=== PATIENT | female | born 1985 | race Caucasian/White ===

== ENCOUNTER 2023-06-04 05:55 | Inpatient (IN) | payer BC ==
[2023-06-04] MEDS ORDERED: METHYLERGONOVINE 0.2 MG/ML 1 ML AMP IM PRN (06:18)
[2023-06-04] MEDS ORDERED: OXYTOCIN 10 UNIT/ML 1 ML VIAL IM PRN (06:18)
[2023-06-04] MEDS ORDERED: miSOPROStoL 200 MCG TAB PO PRN (06:18)
[2023-06-04] MEDS ORDERED: CARBOPROST TROMETHAMINE 250 MCG/ML 1 ML AMP IM PRN (06:18)
[2023-06-04] MEDS ORDERED: TERBUTALINE 1 MG/ML VIAL SQ PRN (06:18)
[2023-06-04] MEDS ORDERED: TRANEXAMIC 1,000 MG/100ML-NACL 1,000 MG in EMPTY BAG 1 BAG IV PRN (06:18)
[2023-06-04] MEDS ORDERED: LIDOCAINE 0.5% (PF) 5 MG/ML (50 ML SDV) SQ PRN (06:18)
[2023-06-04] MEDS: LACTATED RINGERS 1,000 ML IV SCH ×2 (06:21→13:15)
[2023-06-04] MEDS ORDERED: OXYTOCIN 30 UNITS/500 ML NS 30 UNIT in SALINE 1 500ML.BAG IV SCH ×2 (06:30→13:15)
[2023-06-04 06:42] LABS: Basophils % (A) 0 %; Eosinophils # (A) 0.1 k/uL (0-0.7); Eosinophils % (A) 1 %; HCT 32.9 % (34.0-46.0); HGB 11.9 gm/dL (11.4-16.0); Lymphocytes # (A) 1.4 k/uL (1.0-4.8); Lymphocytes % (A) 19 %; MCH 32.6 pg (25.0-35.0); MCHC 36.1 g/dL (31.0-37.0); MCV 90.4 fL (80.0-100.0); Mean Platelet Volume 8.6; Monocytes # (A) 0.4 k/uL (0-1.0); Monocytes % (A) 5 %; Neutrophils # (A) 5.6 k/uL (1.3-7.7); Neutrophils % (A) 74 %; Platelet Count 165 k/uL (150-450); RBC 3.64 m/uL (3.80-5.40); RDW 13.4 % (11.5-15.5); WBC 7.6 k/uL (3.8-10.6)
[2023-06-04] MEDS ORDERED: diphenhydrAMINE 50 MG/ML 1 ML VIAL IVP PRN ×2 (13:10)
[2023-06-04] MEDS ORDERED: HYDROCORTISONE 2.5% RECTAL CREAM 30 GM TUBE RECTAL PRN (13:10)
[2023-06-04] MEDS ORDERED: ACETAMINOPHEN TAB 325 MG TAB PO PRN (13:10)
[2023-06-04] MEDS ORDERED: ZOLPIDEM 5 MG TAB PO PRN (13:10)
[2023-06-04] MEDS ORDERED: diphenhydrAMINE 25 MG CAP PO PRN (13:10)
[2023-06-04] MEDS ORDERED: SIMETHICONE 80 MG CHEWABLE PO PRN (13:10)
[2023-06-04] MEDS ORDERED: diphenhydrAMINE 50 MG CAP PO PRN (13:10)
[2023-06-04] MEDS ORDERED: BENZOCAINE/MENTHOL SPRAY 1 GM/SPRAY AEROSOL TOPICAL PRN (13:10)
[2023-06-04] MEDS ORDERED: LANOLIN CREAM 5 GM TUBE TOPICAL PRN (13:10)
--- NOTE | 2023-06-04 13:21 | P.HPOB ---
History of Present Illness H&P Date: 06/04/23 Chief Complaint: IUP at 39-6/7 weeks This is a 38-year-old 2 para 1002 at 39-6/7 weeks that presents to labor and delivery for elective induction of labor. Patient has been routine care with myself which has been essentially uncomplicated. Patient has a hi story of a twin delivery at 36 weeks and 6 days. Patient is without complaints this morning. She notes good movement denies contractions vaginal bleeding or loss of fluid. On bloodwork patient has a blood type of O-, rubella status immune, B surface antigen is negative, HIV negative, RPR is nonreactive, group beta strep culture negative. Review of Systems Constitutional: Denies chills, Denies fatigue, Denies fever Ears, nose, mouth and throat: Denies headache Cardiovascular: Denies leg edema Respiratory: Denies dyspnea Gastrointestinal: Denies constipation, Denies diarrhea, Denies nausea, Denies vomiting Genitourinary: Reports Past Medical History Past Medical History: No Reported History History of Any Multi-Drug Resistant Organisms: None Reported Past Surgical History: No Surgical Hx Reported Past Anesthesia/Blood Transfusion Reactions: No Reported Reaction Past Psychological History: No Psychological Hx Reported Smoking Status: Never smoker Past Alcohol Use History: None Reported Past Drug Use History: None Reported - Past Family History Father Family Medical History: AFIB Mother Family Medical History: AFIB Medications and Allergies Home Medications Medication Instructions Recorded Confirmed Type Ferrous Sulfate [Feosol] 325 mg PO DAILY 06/04/23 06/04/23 History Vit No.180/Iron/Folic 1 each PO DAILY 06/04/23 06/04/23 History [ Plus Tablet] Allergies Allergy/AdvReac Type Severity Reaction Status Date / Time No Known Allergies Allergy Verified 06/04/23 06:16 Exam Osteopathic Statement: *. No significant issues noted on an osteopathic structural exam other than those noted in the History and Physical/Consult. 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 heart tones were noted to be category 1 and she was amy approximately every 3 minutes. Results Result Diagrams: 06/04/23 06:21 Abnormal Lab Results - Last 24 Hours (Table) 06/04/23 Range/Units 06:21 RBC 3.64 L (3.80-5.40) m/uL Hct 32.9 L (34.0-46.0) % Assessment and Plan (1) Term Current Visit: Yes Status: Acute Code(s): Z34.90 - ENCNTR FOR SUPRVSN OF NORMAL , UNSP, UNSP TRIMESTER SNOMED Code(s): 97509211 (2) AMA (advanced maternal age) multigravida 35+ Current Visit: Yes Status: Acute Code(s): O09.529 - SUPERVISION OF ELDERLY MULTIGRAVIDA, UNSPECIFIED TRIMESTER SNOMED Code(s): 229712455 Plan: 38 yo at 39 6/7 weeks that presents for elective induction of labor. She is admitted to labor and delivery for pitocin induction of labor. Options for analgesia are discussed and she will review. anticipate vaginal delivery.
--- NOTE | 2023-06-04 13:24 | P.PROBDLV ---
Vaginal Delivery Note - . Vaginal Delivery Note: 38-year-old at 39-6/7 weeks that presented to labor and delivery for induction of labor. Patient been receiving routine care which has been essentially on top acute. Patient has a history of a 36 week twin delivery. Patient was admitted to labor and delivery and Pitocin induction of labor was begun per hospital protocol. Amniotomy was performed and clear fluid was obtained. Patient progressed through labor and declined annals analgesia. Patient progressed to complete and with excellent maternal effort had a normal spontaneous vaginal delivery of a viable female at 1248, weight of 8 lbs. 13 oz., Apgars of 9 and 9 at one and 5 minutes respectively. After two-minute delayed the umbo cord was doubly clamped and cut. The placenta was delivered spontaneously intact with a three-vessel cord being noted. The uterus noted be firm and below the umbilicus. On inspection of the patient's vaginal vault bilateral sulcus tears are noted. These areas are injected with lidocaine with 3-0 Rapide. Laceration was inspected after closure and hemostasis was appreciated. Estimated blood loss 200 mL Patient and infant tolerated delivery well and are resting comfortably. All counts were correct 2 at the end of the delivery.
[2023-06-04] MEDS: IBUPROFEN 600 MG TAB PO SCH ×2 (15:40→19:45)
[2023-06-04] MEDS: SENNOSIDES-DOCUSATE SODIUM 1 EACH TAB PO SCH (19:45)
[2023-06-04] MEDS ORDERED: Rhogam IMMUNE GLOBULIN 1,500 UNIT/1 ML IM ONE (23:22)
[2023-06-05] MEDS ORDERED: IBUPROFEN 600 MG TAB PO PRN (01:34)
[2023-06-05] MEDS: IBUPROFEN 600 MG TAB PO SCH (01:35)
[2023-06-05] MEDS: SENNOSIDES-DOCUSATE SODIUM 1 EACH TAB PO SCH (07:45)
[2023-06-05 08:35] VITALS: BP 111/75; PULSE 72; RESP 14; TEMP 98.7
--- NOTE | 2023-06-05 09:30 | P.DS ---
Providers Date of admission: 06/04/23 05:55 Expected date of discharge: 06/05/23 Attending physician: Ana Lopez Primary care physician: Stated None - Discharge Diagnosis(es) (1) Term Current Visit: Yes Status: Acute (2) AMA (advanced maternal age) multigravida 35+ Current Visit: Yes Status: Acute (3) Status post vaginal delivery Current Visit: Yes Status: Acute (4) Obstetrical laceration b/l sulcus tears Current Visit: Yes Status: Acute Hospital Course: 38-year-old 2 now para 2002 that presented to labor and delivery for induction of labor yesterday. Patient had been receiving routine care which had been essentially uncomplicated. Patient has a prior history of a twin vaginal delivery. A shunt was admitted to labor and delivery and Pitocin induction of labor was begun. Patient underwent amniotomy and clear fluid was obtained. Patient made good progress through labor. Patient was noted to be completely dilated. Patient began pushing and had a normal spontaneous vaginal delivery of a viable female at 1248, weight of 8 lbs. 13 oz., Apgars of 9 and 9 at one and 5 minutes respectively. Patient did sustain a bilateral sulcus tear that was repaired after delivery. Patient's post course uneventful. On this day #1 she is ambulating and voiding without difficulty. She is tolerating a regular diet without nausea or vomiting. She states her pain is well-controlled. She denies concerns. She would like discharge home at 24 hours if possible. Patient Condition at Discharge: Good Plan - Discharge Summary New Discharge Prescriptions: No Action Vit No.180/Iron/Folic [ Plus Tablet] 1 each PO DAILY Ferrous Sulfate [Feosol] 325 mg PO DAILY Discharge Medication List Ferrous Sulfate [Feosol] 325 mg PO DAILY 06/04/23 [History] Vit No.180/Iron/Folic [ Plus Tablet] 1 each PO DAILY 06/04/23 [History] Follow up Appointment(s)/Referral(s): Ana Lopez DO [Doctor of Osteopathic Medicine] - 4 Weeks Patient Instructions/Handouts: Vaginal Delivery (GEN), Vaginal Delivery (DC) Activity/Diet/Wound Care/Special Instructions: No tub baths or intercourse until 6 weeks . Patient is to call the office to make a routine visit at 4 weeks. [id number] ibuprofen as needed for pain. Should patient have any concerns prior to her 4 week post check she is urged to call the office. Discharge Disposition: HOME SELF-CARE
== END 2023-06-05 13:30 | disposition home or self-care (01) | DRG 807 ==
LOC: 4FBP 05:55
PROVIDERS: ADMIT Obstetrics & Gynecology Obstetrics; ATTEND Obstetrics & Gynecology Obstetrics
PROC: 10E0XZZ Delivery of Products of Conception, External Approach (ICD-10-PCS; principal; 2023-06-04)
PROC: 10907ZC Drainage of Amniotic Fluid, Therapeutic from Products of Conception, Via Natural or Artificial Opening (ICD-10-PCS; 2023-06-04)
PROC: 0UQG7ZZ Repair Vagina, Via Natural or Artificial Opening (ICD-10-PCS; 2023-06-04)
PROC: 3E033VJ Introduction of Other Hormone into Peripheral Vein, Percutaneous Approach (ICD-10-PCS; 2023-06-04)
DX: O71.4 Obstetric high vaginal laceration alone (principal); Z37.0 Single live birth; Z3A.39 39 weeks gestation of pregnancy; Z28.310 Unvaccinated for COVID-19
CPT/HCPCS: 85025; 85461; 86850; 86870; 86880; 86900; 86901

== ENCOUNTER 2024-05-24 18:32 | Emergency (ER) | payer BC ==
[2024-05-24 18:40] VITALS: RESP 16
--- NOTE | 2024-05-24 20:00 | ED ---
General Adult HPI - General Chief complaint: Skin/Abscess/Foreign Body Stated complaint: Spider Bite Time Seen by Provider: 05/24/24 19:41 Source: patient, RN notes reviewed, old records reviewed Mode of arrival: ambulatory Limitations: no limitations - History of Present Illness Initial comments: 39 yo female presenting with suspected bug bite or spider bite to the left forearm. Patient did not witness the bite or spider. But she states she was moving some wood and noticed 2 small sarah on her forearm. Patient was concerned that this could be related to a spider bite. - Related Data Home Medications Medication Instructions Recorded Confirmed Ferrous Sulfate [Feosol] 325 mg PO DAILY 06/04/23 06/04/23 Vit No.180/Iron/Folic 1 each PO DAILY 06/04/23 06/04/23 [ Plus Tablet] Allergies Allergy/AdvReac Type Severity Reaction Status Date / Time No Known Allergies Allergy Verified 05/24/24 18:40 Review of Systems ROS Statement: Those systems with pertinent positive or pertinent negative responses have been documented in the HPI. ROS Other: All systems not noted in ROS Statement are negative. Past Medical History Past Medical History: No Reported History History of Any Multi-Drug Resistant Organisms: None Reported Past Surgical History: No Surgical Hx Reported Past Anesthesia/Blood Transfusion Reactions: No Reported Reaction Past Psychological History: No Psychological Hx Reported Smoking Status: Never smoker Past Alcohol Use History: Occasional Past Drug Use History: None Reported - Past Family History Father Family Medical History: AFIB Mother Family Medical History: AFIB General Exam Limitations: no limitations General appearance: alert, in no apparent distress Head exam: Present: atraumatic, normocephalic Eye exam: Present: normal appearance, PERRL ENT exam: Present: normal exam Neck exam: Present: normal inspection. Absent: tenderness, meningismus Respiratory exam: Present: normal lung sounds bilaterally. Absent: respiratory distress, wheezes Cardiovascular Exam: Present: regular rate, normal rhythm GI/Abdominal exam: Present: soft. Absent: distended, tenderness, guarding Extremities exam: Present: other (2 small abrasion or bite sarah on the palmar surface of the mid forearm without surrounding erythema, no induration, no signs of infection or irritation) Course Vital Signs 05/24/24 18:34 Temperature 98.1 F Pulse Rate 76 Respiratory 16 Rate Blood Pressure 117/72 O2 Sat by Pulse 100 Oximetry Medical Decision Making - Medical Decision Making Was pt. sent in by a medical professional or institution (ANUJ Anderson, LEAD PHP DEVELOPER, urgent care, hospital, or [facility]...) When possible be specific @ -No Did you speak to anyone other than the patient for history (EMS, parent, family, police, friend...)? What history was obtained from this source @ -No Did you review nursing and triage notes (agree or disagree)? Why? @ -I reviewed and agree with nursing and triage notes Were old charts reviewed (outside hosp., previous admission, EMS record, old EKG, old radiological studies, urgent care reports/EKG's, [facility] records)? Report findings @ -No old charts were reviewed Differential Diagnosis: Insect bite, possible spider bite. EKG interpreted by me (3pts min.). @ -As above X-rays interpreted by me (1pt min.). @ -None done CT interpreted by me (1pt min.). @ -None done U/S interpreted by me (1pt. min.). @ -None done What testing was considered but not performed or refused? (CT, X-rays, U/S, labs)? Why? @ -None What meds were considered but not given or refused? Why? @ -None Did you discuss the management of the patient with other professionals (professionals i.e. ANUJ Anderson, LEAD PHP DEVELOPER, lab, RT, psych nurse, executive secretary social welfare, stunt man, teacher, systems support officer, case finishing machine adjuster)? Give summary @ -No Was smoking cessation discussed for >3mins.? @ -No Was critical care preformed (if so, how long)? @ -No Were there social determinants of health that impacted care today? How? (Homelessness, low income, unemployed, alcoholism, drug addiction, transportation, low edu. Level, literacy, decrease access to med. care, detention, rehab)? @ -No Was there de-escalation of care discussed even if they declined (Discuss DNR or withdrawal of care, Hospice)? DNR status @ -No What co-morbidities impacted this encounter? (DM, HTN, Smoking, COPD, CAD, Cancer, CVA, ARF, Chemo, Hep., AIDS, mental health diagnosis, sleep apnea, morbid obesity)? @ -None Was patient admitted / discharged? Hospital course, mention meds given and route, prescriptions, significant lab abnormalities, going to OR and other pertinent info. @ -39-year-old female with possible bite to the forearm. Patient did not witness event. There is no signs of local infection or irritation. There is no systemic signs or symptoms. Patient is informed local wound care and will monitor for both signs of infection and worsening symptoms. Stable for discharge with outpatient follow-up. Undiagnosed new problem with uncertain prognosis? @ -No Drug Therapy requiring intensive monitoring for toxicity (Heparin, Nitro, Insulin, Cardizem)? @ -No Were any procedures done? @ -No Diagnosis/symptom? @ -Insect bite or sting Acute, or Chronic, or Acute on Chronic? @ -[Acute Uncomplicated (without systemic symptoms) or Complicated (systemic symptoms)? @ -Default Side effects of treatment? @ -No Exacerbation, Progression, or Severe Exacerbation? @ -No Poses a threat to life or bodily function? How? (Chest pain, [place], [place], pneumonia, PE, COPD, DKA, ARF, appy, cholecystitis, CVA, Diverticulitis, Homicidal, Suicidal, threat to staff... and all critical care pts) @ -No Disposition Clinical Impression: Bug bite Disposition: HOME SELF-CARE Condition: Good Instructions (If sedation given, give patient instructions): Insect Bite or Sting (ED) Is patient prescribed a controlled substance at d/c from ED?: No Referrals: Tyler Houston DO [Primary Care Provider] - 1-2 days Time of Disposition: 19:59
[2024-05-24 20:44] VITALS: BP 115/71; PULSE 78; TEMP 98.2
== END 2024-05-24 20:44 | disposition home or self-care (01) ==
LOC: EC 18:32
DX: S50.811A Abrasion of right forearm, initial encounter (principal); W57.XXXA Bitten or stung by nonvenomous insect and other nonvenomous arthropods, initial encounter
CPT/HCPCS: 99282